=== PATIENT | female | born 1985 | race Caucasian/White ===

== ENCOUNTER → 2017-12-07 | Outpatient (CLI) | payer BC ==
[~2017-12-07] MED LIST: DULO20CA45 PO; ESCI20TA10 PO; IBUP-1222 PO; LISI-170 PO; NIFE60TA2 PO; OXYC-302 PO
== END | disposition home or self-care (01) ==
LOC: CFH 14:43
PROVIDERS: ATTEND Internal Medicine Cardiovascular Disease
DX: R94.31 Abnormal electrocardiogram [ECG] [EKG] (principal); R00.2 Palpitations; I10 Essential (primary) hypertension
CPT/HCPCS: 93306

== ENCOUNTER 2020-02-06 21:38 | Emergency (ER) | payer BC ==
[~2020-02-06] VITALS: Ht 162.6 cm; Wt 107.0 kg
[2020-02-06 21:50] VITALS: BP 160/98
== END 2020-02-06 22:44 | disposition home or self-care (01) ==
LOC: ED 22:18
DX: S61.012A Laceration without foreign body of left thumb without damage to nail, initial encounter (principal); I10 Essential (primary) hypertension; W26.0XXA Contact with knife, initial encounter; Y93.89 Activity, other specified; Y92.098 Other place in other non-institutional residence as the place of occurrence of the external cause; Y99.8 Other external cause status
CPT/HCPCS: 12001; 99283

== ENCOUNTER 2020-02-29 07:28 | Emergency (ER) | payer BC ==
[~2020-02-29] VITALS: Ht 162.6 cm; Wt 108.6 kg
--- NOTE | 2020-02-29 07:36 | NUR ---
AMBULATORY TO ROOM 16
--- NOTE | 2020-02-29 07:41 | NUR ---
DR MACK BS FOR EXAM. PT STATES SHE STARTED SPOTTING ON SUNDAY. DENIES CLOTTING, NOT HEAVY PERIOD. C/O LOW BACK PAIN, LT FLANK TENDERNESS, INCREASED URINATION. DENIES PAIN/BURNING W/ URINATION. INITIAL OB EXAM 03/04/2020.
[2020-02-29] MEDS ORDERED: FLUO40CA2 PO (07:49)
[2020-02-29] MEDS ORDERED: RHOGAM FROM BLOOD BANK 1 NOTE EA IM/IV ONE (08:00)
--- NOTE | 2020-02-29 08:06 | NUR ---
QUICK CATH URINE SPECIMEN OBTAINED.
--- NOTE | 2020-02-29 08:07 | NUR ---
REQUESTS PAIN MED. DR MACK WILL BE NOTIFIED.
--- NOTE | 2020-02-29 08:13 | NUR ---
TO U/S PER MIKEL
[2020-02-29 08:26] LABS: MICROSCOPIC NOT IND
[2020-02-29] MEDS ORDERED: ACETAMINOPHEN 500 MG TABLET PO ONE (08:30)
[2020-02-29 08:35] LABS: CULTURE INDICATED? NO
[2020-02-29] MEDS ORDERED: ACETAMINOPHEN 500 MG TABLET ONE (08:40)
--- NOTE | 2020-02-29 08:51 | NUR ---
RHOGAM ADMINISTRATION DISCUSSED W/ PT; DR MACK HAD DISCUSSED ADMINISTRATION EARLIER. CONSENT SIGNED. RHOGAM PICKED UP FROM BLOOD BANK.
[2020-02-29 09:05] VITALS: BP 128/84
--- NOTE | 2020-02-29 09:05 | NUR ---
RHOGAM AND TYLENOL ADMINISTERED PER EMAR
--- NOTE | 2020-02-29 10:09 | NUR ---
PT FULLY DRESSED, STANDING IN ED ROOM, AWAITING DC.
== END 2020-02-29 10:28 | disposition home or self-care (01) ==
LOC: ED 08:11
DX: O03.4 Incomplete spontaneous abortion without complication (principal); I10 Essential (primary) hypertension
CPT/HCPCS: 36415; 76801; 81003; 84702; 86850; 86900; 96372; 99284; J2790

== ENCOUNTER 2021-02-19 02:55 | Emergency (ER) | payer BC ==
[~2021-02-19] VITALS: Ht 162.6 cm; Wt 117.0 kg
[~2021-02-19 02:55] MED LIST changes: +FLUO40CA2 PO; -OXYC-302 PO; +OXYC1TAB12 PO
--- NOTE | 2021-02-19 03:10 | NUR ---
INITIAL PT CONTACT. PT PRESENTS TO ED C/O VAGINAL BLEEDING FOR APPROX 4 HOURS. PT STATES SHE TOOK MEDS FOR MISCARRIAGE AT 1800, NOW IS BLEEDING SIGNIFICANTLY. 2 PADS/HR. PT REPORTS RHOGAM YESTERDAY. PT DENIES ANY DIZZINESS, LIGHT-HEADEDNESS OR OTHER SYMPTOMS AT THIS TIME. PT PLACED ON CONTINUOUS MONITORING AND PROVIDED ADDITIONAL PADS REQUESTED. PT DENIES ANY ADDITIONAL NEEDS AT THIS TIME. AWAITING ERP.
--- NOTE | 2021-02-19 03:22 | NUR ---
PT TO US
[2021-02-19 03:32] LABS: BASOPHILS % (AUTO) 1 % (0-1); EOSINOPHILS % (AUTO) 1 % (1-7); LYMPHOCYTES % (AUTO) 28 % (22-44); MEAN CORPUSCULAR HEMOGLOBIN 27.8 pg (27.0-34.8); MEAN CORPUSCULAR HGB CONC 33.5 g/dL (32.4-35.8); MEAN PLATELET VOLUME 7.5 fL (7.4-10.4); MONOCYTES % (AUTO) 6 % (2-9); NEUTROPHILS % (AUTO) 65 % (42-75); PLATELET COUNT 320 x10^3/uL (130-400); RED BLOOD COUNT 4.68 x10^6/uL (3.82-5.3); RED CELL DISTRIBUTION WIDTH 13.1 % (9.6-15.2)
[2021-02-19 03:41] LABS: ALANINE AMINOTRANSFERASE 24 U/L (12-78); ALBUMIN 3.3 g/dL (3.4-5.0); ANION GAP 7 mmol/L (5-15); CALCIUM 8.8 mg/dL (8.5-10.1); CHLORIDE 108 mmol/L (98-107); CREATININE 0.84 mg/dL (0.55-1.02)
--- NOTE | 2021-02-19 03:52 | NUR ---
REPORT RECIEVED FROM NAN GILMAN
--- NOTE | 2021-02-19 03:52 | NUR ---
REPORT TO KIRSTEN MONTANA
[2021-02-19 03:58] LABS: ALKALINE PHOSPHATASE 59 U/L (45-117); BILIRUBIN,TOTAL 0.2 mg/dL (0.2-1.0)
[2021-02-19] MEDS ORDERED: HYDROcodone/APAP 5/325 TABLET ONE (04:24)
[2021-02-19] MEDS ORDERED: HYDROcodone/APAP 5/325 TABLET PO ONE (04:30)
[2021-02-19] MEDS ORDERED: ONDANSETRON 2MG/ML, 2ML ONE (04:40)
[2021-02-19] MEDS ORDERED: MORPHINE SULFATE 4 MG/ML, 1ML ONE (04:40)
[2021-02-19] MEDS ORDERED: MORPHINE SULFATE 4 MG/ML, 1ML IVPush PRN (05:00)
[2021-02-19] MEDS ORDERED: ONDANSETRON 2MG/ML, 2ML IVPush ONE (05:00)
[2021-02-19] MEDS ORDERED: SODIUM CHLORIDE 0.9% 1,000ML IVBOLUS ONE (05:00)
[2021-02-19] MEDS ORDERED: SODIUM CHLORIDE FLUSH 10ML SYR IVF ONE (05:00)
[2021-02-19 06:33] VITALS: BP 136/76
== END 2021-02-19 06:36 | disposition home or self-care (01) ==
LOC: ED 06:30
DX: O03.1 Delayed or excessive hemorrhage following incomplete spontaneous abortion (principal); O16.1 Unspecified maternal hypertension, first trimester; Z3A.09 9 weeks gestation of pregnancy
CPT/HCPCS: 36415; 76830; 80053; 84702; 85025; 96361; 96374; 96375; 99284; J2270; J2405; J7030

== ENCOUNTER 2021-03-02 14:25 | Emergency (ER) | payer BC ==
[~2021-03-02] VITALS: Ht 154.9 cm; Wt 112.0 kg
[~2021-03-02 14:25] MED LIST changes: -OXYC1TAB12 PO; +OXYC1TAB14 PO
[2021-03-02 15:08] LABS: BASOPHILS % (AUTO) 1 % (0-1); EOSINOPHILS % (AUTO) 1 % (1-7); LYMPHOCYTES % (AUTO) 38 % (22-44); MEAN CORPUSCULAR HEMOGLOBIN 27.8 pg (27.0-34.8); MEAN CORPUSCULAR HGB CONC 33.7 g/dL (32.4-35.8); MEAN PLATELET VOLUME 7.3 fL (7.4-10.4); MONOCYTES % (AUTO) 6 % (2-9); NEUTROPHILS % (AUTO) 54 % (42-75); PLATELET COUNT 356 x10^3/uL (130-400); RED BLOOD COUNT 4.99 x10^6/uL (3.82-5.3); RED CELL DISTRIBUTION WIDTH 13.4 % (9.6-15.2)
[2021-03-02 15:11] LABS: MD NO
[2021-03-02 15:21] LABS: ANION GAP 8 mmol/L (5-15); CALCIUM 9.2 mg/dL (8.5-10.1); CHLORIDE 107 mmol/L (98-107)
[2021-03-02 15:23] LABS: CREATININE 0.75 mg/dL (0.55-1.02)
[2021-03-02 15:47] LABS: MICROSCOPIC INDICATED
[2021-03-02 16:57] VITALS: BP 139/87
== END 2021-03-02 16:59 | disposition home or self-care (01) ==
LOC: ED 16:53
DX: O03.9 Complete or unspecified spontaneous abortion without complication (principal); G44.1 Vascular headache, not elsewhere classified; I10 Essential (primary) hypertension; R20.0 Anesthesia of skin
CPT/HCPCS: 36415; 80048; 81001; 82040; 84702; 85025; 87086; 93005; 99284